=== PATIENT | male | born 1950 | race Caucasian/White ===

== ENCOUNTER → 2016-10-01 | Outpatient (CLI) | payer MEDICARE, OTHER ==
[2015-09-27 12:45] VITALS: BP 139/59
[~2016-10-01] MED LIST: ACYC400T PO; AMIT25TA PO; BACL10TA PO; BUDE10.2 IH; FURO-69 PO; MELO-150 PO; MORP30TA83 PO; OXYC-244 PO; PRED-220 PO; PREG200C PO; ROPI1TAB PO; SERT100T PO; SIMV40TA3 PO; TAMS0.4C97 PO; TOPI25TA32 PO; TRAZ150T55 PO; morphine
--- NOTE | 2016-10-01 16:36 | RAD ---
Right femur radiographs History: Third finger pain, arthritis for one month. Comparison: None. Findings: Frontal view of the right hand. Oblique and lateral views of the third digit (middle finger). No acute fracture or dislocation is identified. No focal soft tissue swelling is seen. No erosive changes are identified. 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
== END | disposition home or self-care (01) ==
LOC: DXRADRC 13:50
PROVIDERS: ATTEND Physician Assistant
DX: M79.644 Pain in right finger(s) (principal); M19.041 Primary osteoarthritis, right hand
CPT/HCPCS: 73140